=== PATIENT | female | born 1985 | race Hispanic/Latino ===

== ENCOUNTER 2018-01-14 12:58 | Emergency (ER) | payer OTHER, SELFPAY ==
[2018-01-14 13:54] LABS: Bilirubin Negative (Negative); Blood, Urine Negative (Negative); Clarity CLOUDY (Clear); Glucose, Urine (Dipstick) Negative (Negative); Leukocyte Negative (Negative); Nitrite Negative (Negative); Protein, Urine (Dipstick) Negative (Neg-Trace); Specific Gravity, Urine 1.026 (1.002-1.036); Urobilinogen 0.2 mg/dL (0.2-1.0); pH, Urine 5.5 (5.0-9.0)
== END 2018-01-14 14:40 | disposition home or self-care (01) ==
LOC: ERS 12:58
DX: M54.5 Low back pain (principal); G89.29 Other chronic pain; F17.200 Nicotine dependence, unspecified, uncomplicated; I10 Essential (primary) hypertension; Z79.899 Other long term (current) drug therapy
CPT/HCPCS: 81003; 99283

== ENCOUNTER 2019-03-26 17:35 | Emergency (ER) | payer SELFPAY ==
[2019-03-26] MEDS ORDERED: Acetaminophen 500 MG TAB ONE (19:49)
[2019-03-26] MEDS ORDERED: Ondansetron PF 4 MG/2 ML Vial ONE (19:49)
[2019-03-26] MEDS ORDERED: cefTRIAXone\\ROCEPHIN 1 GM VIAL ONE (20:08)
[2019-03-26] MEDS ORDERED: Morphine 4 MG/ML VIAL ONE (20:08)
[2019-03-26 20:13] LABS: Bacteria/HPF 3+ HPF (None Seen); Bilirubin Negative (Negative); Blood, Urine 1+ (Negative); Clarity Clear (Clear); Glucose, Urine (Dipstick) Normal (Negative); Leukocyte Negative Leu/uL (Negative); Nitrite Negative (Negative); Protein, Urine (Dipstick) Negative (Neg-Trace); RBC/HPF 0-3 HPF (0-3); Urobilinogen Normal mg/dL (Less than 2); WBC/HPF 0-3 HPF (0-3)
[2019-03-26 20:15] LABS: Pregnancy Test - Urine (BHCG) Negative (Negative); Pregu Control Background? CLEAR/WHITE (CLR/WHITE); Pregu Control Bar Appear? YES (CONTROL BAR); Specific Gravity 1.013 (1.002-1.036)
[2019-03-26 20:22] LABS: #Eosinphils 0.2 thou/uL (0.0-0.7); #Lymphocytes 3.8 thou/uL (1.20-3.40); #Monocytes 0.7 thou/uL (0.11-0.59); #Neutrophils 4.8 thou/uL (1.40-6.50); %Basophils 0.4 % (0.0-1.0); %Eosinophils 1.9 % (0.0-10.0); %Lymphocytes 40.4 % (21.0-51.0); %Monocytes 7.2 % (0.0-10.0); %Neutrophils 50.2 % (42.0-75.0); Hemoglobin 14.7 g/dL (12.0-16.0); Mean Corpuscular HGB CONC 35.2 g/dL (32.0-36.0); Mean Corpuscular Hemoglobin 30.1 pg (27.0-31.0); Mean Corpuscular Volume 85.4 fL (78.0-98.0); Mean Platelet Volume 8.9 fL (7.4-10.4); Platelet Count 285 thou/uL (130-400); Red Blood Cell (RBC) Count 4.91 mill/uL (4.20-5.40); White Blood Cell (WBC) Count 9.5 thou/uL (4.8-10.8)
[2019-03-26 20:44] LABS: ALT (SGPT) 41 U/L (8-55); AST (SGOT) 51 U/L (5-34); Albumin 4.8 g/dL (3.5-5.0); Alkaline Phosphatase 100 U/L (40-110); Anion Gap 14 mmol/L (10-20); BUN (Urea Nitrogen) 8 mg/dL (7.0-18.7); Bilirubin, Total 0.2 mg/dL (0.2-1.2); Calc. Creatinine Clearance 0 mL/min (70-130); Calcium 9.5 mg/dL (7.8-10.44); Carbon Dioxide 26 mmol/L (22-29); Chloride 103 mmol/L (98-107); Estimated GFR-MDRD Greater than 90; Globulin 3.7 g/dL (2.4-3.5); Glucose 77 mg/dL (70-105); Lipase 76 U/L (8-78); Potassium 3.2 mmol/L (3.5-5.1); Protein, Total 8.5 g/dL (6.0-8.3); Sodium 140 mmol/L (136-145)
--- NOTE | 2019-03-26 21:19 | CT ---
CT ABDOMEN AND PELVIS WITHOUT CONTRAST: History: Left leg flank pain. FINDINGS: Absence of oral and IV contrast reduces the sensitivity of the exam, particularly for evaluation of s olid organs and bowel. The lung bases are clear. No free air or free fluid is seen in the abdomen or pelvis. No gallstones a re noted. The liver demonstrates diffusely decreased attenuation compared to the spleen consistent wi th fatty infiltration. No calculi are seen in the kidneys, ureters, or the urinary bladder. No hydrou reteronephrosis is noted on either side. An abnormal appendix is not visualized, consistent with appendectomy. Uterus is present. No acute oss eous abnormalities are seen. IMPRESSION: 1. No CT evidence of urinary calculi or obstruction. 2. Fatty liver. POS: OFF
[2019-03-26] MEDS ORDERED: Potassium Chloride 20 MEQ TAB ONE (22:12)
== END 2019-03-26 22:30 | disposition home or self-care (01) ==
LOC: ERS 17:35
DX: N12 Tubulo-interstitial nephritis, not specified as acute or chronic (principal); R11.0 Nausea; I10 Essential (primary) hypertension; F17.200 Nicotine dependence, unspecified, uncomplicated; Z79.899 Other long term (current) drug therapy
CPT/HCPCS: 74176; 80053; 81003; 81015; 81025; 83605; 83690; 85025; 87040; 87086; 96365; 96375; J0696; J2270; J2405

== ENCOUNTER 2020-12-09 10:01 | Emergency (ER) | payer BC ==
[2020-12-09] MEDS ORDERED: diphenhydrAMINE 25 MG CAP ONE (10:17)
[2020-12-09] MEDS ORDERED: Famotidine 20 MG TAB ONE (10:17)
[2020-12-09] MEDS ORDERED: Dexamethasone 10 MG/ML VIAL ONE (10:18)
== END 2020-12-09 12:30 | disposition home or self-care (01) ==
LOC: ERS 10:01
DX: L50.0 Allergic urticaria (principal); I10 Essential (primary) hypertension; F17.200 Nicotine dependence, unspecified, uncomplicated; Z79.899 Other long term (current) drug therapy
CPT/HCPCS: 99283; J1100

== ENCOUNTER 2021-08-21 18:00 | Outpatient (CLI) | payer BC | END 2021-08-21 18:01 | disposition home or self-care (01) | LOC: SLEEPLAB 18:00 | PROVIDERS: ATTEND Otolaryngology Plastic Surgery within the Head & Neck | DX: G47.33 Obstructive sleep apnea (adult) (pediatric) (principal); R06.83 Snoring; G47.00 Insomnia, unspecified; J34.3 Hypertrophy of nasal turbinates | CPT/HCPCS: 95800 ==

== ENCOUNTER 2021-09-19 13:13 | Outpatient (CLI) | payer BC | END 2021-09-19 13:14 | disposition home or self-care (01) | LOC: BICMAMMO 13:13 | PROVIDERS: ATTEND Family Medicine | DX: N63.14 Unspecified lump in the right breast, lower inner quadrant (principal) | CPT/HCPCS: 77066; G0279 ==

== ENCOUNTER 2023-02-05 15:58 | Outpatient (CLI) | payer OTHER | END 2023-02-05 15:59 | disposition home or self-care (01) | LOC: ULT 15:58 | PROVIDERS: ATTEND Family Medicine | DX: N93.9 Abnormal uterine and vaginal bleeding, unspecified (principal); R93.89 Abnormal findings on diagnostic imaging of other specified body structures | CPT/HCPCS: 76856 ==

== ENCOUNTER 2024-10-30 10:26 | Outpatient (CLI) | payer BC | END 2024-10-30 10:27 | disposition home or self-care (01) | LOC: BICMAMMO 10:26 | PROVIDERS: ATTEND Family Medicine | DX: Z12.31 Encounter for screening mammogram for malignant neoplasm of breast (principal); Z80.3 Family history of malignant neoplasm of breast | CPT/HCPCS: 77063; 77067 ==